=== PATIENT | male | born 1970 | race Caucasian/White ===

== ENCOUNTER 2017-12-25 06:17 | Inpatient (IN) | payer SELFPAY ==
[2017-12-25] VITALS (24 sets, daily range): BP systolic 83–105; BP diastolic 38–92
[~2017-12-25] VITALS: Ht 165.1 cm; Wt 85.3 kg
[2017-12-25] MEDS ORDERED: KETOROLAC 30MG/ML VIAL IV STA (07:38)
[2017-12-25] MEDS ORDERED: SODIUM CHLORIDE 0.9% 1,000 ML IV ONE ×2 (07:38→10:36)
[2017-12-25] MEDS ORDERED: ONDANSETRON HCL 4MG/2ML VIAL IV STA (07:38)
[2017-12-25 08:11] LABS: CHLORIDE 106 mEq/L (98-107)
[2017-12-25 08:12] LABS: INR 1.4; PROTHROMBIN TIME 14.7 sec (9.4-11.6)
[2017-12-25 08:13] LABS: MEAN CORPUSCULAR HEMOGLOBIN 29.6 pg (28.0-32.0); MEAN CORPUSCULAR VOLUME 91.4 fL (80.0-94.0); MEAN PLATELET VOLUME 9.6 fl (7.4-10.4); PLATELET 117 x1000/uL (130-400); RED BLOOD CELL COUNT 2.27 mill/uL (4.7-6.1); RED CELL DISTRIBUTION WIDTH 22.2 % (11.6-14.6)
[2017-12-25 08:21] LABS: HEMOGLOBIN. 6.7 g/dL (14.0-18.0)
[2017-12-25 08:22] LABS: HEMATOCRIT. 20.7 % (42.0-52.0)
[2017-12-25 09:40] LABS: PLATELET ESTIMATE SLIGHTLY DECREASED
[2017-12-25] MEDS ORDERED: CEFTRIAXONE 1 G PREMIX 50 ML IV ONE (10:15)
[2017-12-25 10:48] LABS: HEPATITIS B SURFACE ANTIGEN NEGATIVE
[2017-12-25 11:15] LABS: HEPATITIS B CORE AB IGM NEGATIVE
[2017-12-25 11:17] LABS: HEPATITIS A AB IGM NEGATIVE (NEGATIVE)
[2017-12-25] MEDS ORDERED: STERILE WATER FOR INJECTION 10ML VIAL ONE (14:13)
[2017-12-25] MEDS ORDERED: MIDAZOLAM HCL 5 MG/5 ML VIAL IV PRN (15:11)
[2017-12-25] MEDS ORDERED: SIMETHICONE 40 MG/0.6 ML 30ML ONE (15:12)
[2017-12-25] MEDS ORDERED: FENTANYL CITRATE/PF 50MCG/ML 2ML VIAL ONE (15:12)
[2017-12-25] MEDS ORDERED: MIDAZOLAM HCL 5 MG/5 ML VIAL ONE (15:12)
[2017-12-25 15:44] LABS: TOTAL IRON BINDING CAPACITY 206 ug/dL (250-450)
[2017-12-25] MEDS ORDERED: SODIUM CHLORIDE 0.9% 1,000 ML IV SCH (16:59)
[2017-12-25] MEDS ORDERED: DIPHENHYDRAMINE 50MG/ML VIAL IV PRN (17:00)
[2017-12-25] MEDS ORDERED: MAGNESIUM/ALUMINUM HYDROXIDE/SIMETHICONE 30ML UDC PO PRN (17:00)
[2017-12-25] MEDS ORDERED: CLONIDINE 0.1MG TABLET PO PRN (17:00)
[2017-12-25] MEDS: CEFTRIAXONE 1 G PREMIX 50 ML IV SCH (18:28)
[2017-12-25] MEDS: METRONIDAZOLE 500 MG PREMIX 100 ML IV SCH (18:29)
[2017-12-25] MEDS: PANTOPRAZOLE SODIUM 40 MG/VIAL IV SCH (18:37)
[2017-12-25] MEDS: SUCRALFATE 1 G/10 ML UDC PO SCH (18:37)
[2017-12-25] MEDS: ONDANSETRON HCL 4MG/2ML VIAL IV PRN (20:10)
[2017-12-25] MEDS ORDERED: PHYTONADIONE 10MG/ML AMP SUBCUT NR (20:43)
[2017-12-25] MEDS ORDERED: OCTREOTIDE ACETATE 50 MCG/ML 1ML IV ONE (20:45)
[2017-12-25] MEDS ORDERED: METRONIDAZOLE 500 MG PREMIX 100 ML IV SCH (21:00)
[2017-12-25] MEDS ORDERED: OCTREOTIDE ACETATE 50 MCG/ML 1ML IV SCH (21:30)
[2017-12-25] MEDS ORDERED: OCTREOTIDE 1,000 MCG in SODIUM CHLORIDE 0.9% 100 ML IV SCH (21:30)
[2017-12-25 21:46] LABS: HEMATOCRIT 20.5 % (42.0-52.0); HEMOGLOBIN 6.7 g/dL (14.0-18.0)
[2017-12-25 21:52] LABS: AMMONIA 61 uMol/L (<32)
[2017-12-26] VITALS (47 sets, daily range): BP systolic 85–136; BP diastolic 45–79
[2017-12-26] MEDS: METRONIDAZOLE 500 MG PREMIX 100 ML IV SCH ×3 (01:39→20:16)
[2017-12-26 05:52] LABS: HEMOGLOBIN 7.9 g/dL (14.0-18.0)
[2017-12-26 05:58] LABS: CHLORIDE 117 mEq/L (98-107)
[2017-12-26] MEDS: SUCRALFATE 1 G/10 ML UDC PO SCH ×4 (06:01→20:16)
[2017-12-26 06:17] LABS: PHOSPHORUS 2.1 mg/dL (2.5-4.9)
[2017-12-26 08:33] LABS: BASOPHILS % 0.4 % (0.0-2.0); EOSINOPHILS % 1.1 % (0.0-5.0); HEMATOCRIT. 24.1 % (42.0-52.0); HEMOGLOBIN. 8.3 g/dL (14.0-18.0); LYMPHOCYTES % 19.1 % (20.0-50.0); MEAN CORPUSCULAR HEMOGLOBIN 30.5 pg (28.0-32.0); MEAN CORPUSCULAR VOLUME 88.8 fL (80.0-94.0); MEAN PLATELET VOLUME 9.1 fl (7.4-10.4); MONOCYTES % 5.6 % (2.0-8.0); NEUTROPHILS % 73.8 % (40.0-76.0); PLATELET 95 x1000/uL (130-400); RED BLOOD CELL COUNT 2.71 mill/uL (4.7-6.1); RED CELL DISTRIBUTION WIDTH 17.9 % (11.6-14.6)
[2017-12-26] MEDS ORDERED: PANTOPRAZOLE SODIUM 40 MG/VIAL IV SCH (09:00)
[2017-12-26] MEDS: PANTOPRAZOLE SODIUM 40 MG/VIAL IV SCH ×2 (09:19→20:16)
[2017-12-26] MEDS ORDERED: POTASSIUM CHLORIDE INJ 30 MEQ in DEXTROSE 5% WATER 1,000 ML IV SCH (10:00)
[2017-12-26] MEDS ORDERED: KCL 10MEQ/50ML PREMIX 50 ML IV NR (10:30)
[2017-12-26] MEDS ORDERED: MAGNESIUM 1 G PREMIX 100 ML IV SCH (10:30)
[2017-12-26] MEDS ORDERED: POTASSIUM PHOS,M-BASIC-D-BASIC 20 MMOL in DEXT 5% WATER 243.3333 ML IV SCH (11:30)
[2017-12-26] MEDS: DEXT 5% WATER + KCL 20MEQ/L 1,000 ML IV SCH ×2 (13:04→22:46)
[2017-12-26 18:48] LABS: HEMATOCRIT 22.7 % (42.0-52.0); HEMOGLOBIN 7.8 g/dL (14.0-18.0); MEAN CORPUSCULAR HEMOGLOBIN 30.8 pg (28.0-32.0); MEAN CORPUSCULAR VOLUME 89.9 fL (80.0-94.0); PLATELET 104 x1000/uL (130-400); RED BLOOD CELL COUNT 2.53 mill/uL (4.7-6.1)
[2017-12-27] VITALS (14 sets, daily range): BP systolic 101–124; BP diastolic 55–74
[2017-12-27] MEDS: SUCRALFATE 1 G/10 ML UDC PO SCH ×4 (05:39→20:42)
[2017-12-27 05:55] LABS: HEMATOCRIT. 23.5 % (42.0-52.0); HEMOGLOBIN. 8.1 g/dL (14.0-18.0); MEAN CORPUSCULAR HEMOGLOBIN 31.2 pg (28.0-32.0); MEAN CORPUSCULAR VOLUME 90.2 fL (80.0-94.0); MEAN PLATELET VOLUME 8.9 fl (7.4-10.4); PLATELET 100 x1000/uL (130-400); RED BLOOD CELL COUNT 2.61 mill/uL (4.7-6.1); RED CELL DISTRIBUTION WIDTH 17.8 % (11.6-14.6)
[2017-12-27 06:04] LABS: CHLORIDE 110 mEq/L (98-107)
[2017-12-27 06:11] LABS: PHOSPHORUS 1.5 mg/dL (2.5-4.9)
[2017-12-27] MEDS: DEXT 5% WATER + KCL 20MEQ/L 1,000 ML IV SCH ×2 (07:30→09:08)
[2017-12-27] MEDS: PANTOPRAZOLE SODIUM 40 MG/VIAL IV SCH ×2 (08:10→20:42)
[2017-12-27] MEDS: CEFTRIAXONE 1 G PREMIX 50 ML IV SCH (08:10)
[2017-12-27] MEDS: METRONIDAZOLE 500 MG PREMIX 100 ML IV SCH ×2 (09:09→22:17)
[2017-12-27] MEDS ORDERED: POTASSIUM CHLORIDE 20MEQ/PACKET PO NR (09:30)
[2017-12-27 10:23] LABS: NUCLEATED RED BLOOD CELLS 11 /100 WBC
[2017-12-27 10:24] LABS: PLATELET ESTIMATE DECREASED
[2017-12-27] MEDS ORDERED: POTASSIUM PHOS M BASIC D BASIC IV NR (10:30)
[2017-12-27] MEDS ORDERED: WATER IV NR (10:30)
[2017-12-27] MEDS ORDERED: DEXT 5% IV NR (10:30)
[2017-12-27] MEDS: ONDANSETRON HCL 4MG/2ML VIAL IV PRN (11:28)
[2017-12-27] MEDS ORDERED: SIMETHICONE 40 MG/0.6 ML 30ML PO SCH (17:30)
[2017-12-27] MEDS: SIMETHICONE 80MG TABLET CHEW PO SCH ×3 (18:32→20:42)
[2017-12-28] VITALS: BP 107/67
[2017-12-28 04:00] VITALS: BP 108/72
[2017-12-28] MEDS: ACETAMINOPHEN 325MG TABLET PO PRN ×2 (06:28→19:51)
[2017-12-28 07:46] LABS: HEMOGLOBIN. 8.4 g/dL (14.0-18.0); MEAN CORPUSCULAR HEMOGLOBIN 31.2 pg (28.0-32.0); MEAN CORPUSCULAR VOLUME 92.5 fL (80.0-94.0); MEAN PLATELET VOLUME 9.1 fl (7.4-10.4); PLATELET 127 x1000/uL (130-400); RED CELL DISTRIBUTION WIDTH 18.3 % (11.6-14.6)
[2017-12-28 08:00] VITALS: BP 101/48
[2017-12-28 08:18] LABS: CHLORIDE 108 mEq/L (98-107)
[2017-12-28] MEDS: METRONIDAZOLE 500 MG PREMIX 100 ML IV SCH (08:25)
[2017-12-28] MEDS: PANTOPRAZOLE SODIUM 40 MG/VIAL IV SCH ×2 (08:25→19:50)
[2017-12-28] MEDS: CEFTRIAXONE 1 G PREMIX 50 ML IV SCH (08:25)
[2017-12-28] MEDS: SUCRALFATE 1 G/10 ML UDC PO SCH ×4 (08:30→19:50)
[2017-12-28] MEDS: SIMETHICONE 80MG TABLET CHEW PO SCH ×4 (08:31→19:51)
[2017-12-28 08:45] LABS: PHOSPHORUS 2.4 mg/dL (2.5-4.9)
[2017-12-28] MEDS ORDERED: POTASSIUM PHOS,M-BASIC-D-BASIC 15 MMOL in DEXT 5% WATER 245 ML IV NR (10:00)
[2017-12-28 11:16] LABS: NUCLEATED RED BLOOD CELLS 4 /100 WBC; PLATELET ESTIMATE SLIGHTLY DECREASED
[2017-12-28 12:00] VITALS: BP 99/46
[2017-12-28 16:00] VITALS: BP 105/52
[2017-12-28 20:00] VITALS: BP 106/49
[2017-12-29] VITALS: BP 101/60
[2017-12-29] MEDS: ACETAMINOPHEN 325MG TABLET PO PRN ×2 (03:30→08:09)
[2017-12-29 04:00] VITALS: BP 104/69
[2017-12-29] MEDS: SUCRALFATE 1 G/10 ML UDC PO SCH ×3 (08:09→17:30)
[2017-12-29] MEDS: SIMETHICONE 80MG TABLET CHEW PO SCH ×2 (10:15→14:20)
[2017-12-29] MEDS: PANTOPRAZOLE SODIUM 40 MG/VIAL IV SCH (10:16)
[2017-12-29 12:00] VITALS: BP 106/49
[2017-12-29 16:00] VITALS: BP 108/59
[2017-12-29 17:04] VITALS: BP 108/57
== END 2017-12-29 18:50 | disposition home or self-care (01) | DRG 720 ==
LOC: ER 07:46 → ENRESERV 10:00 → CANRESERV 10:00 → 5EST 10:17 → EDBEDREQSVC 10:18 → EDBEDREQ 10:18 → EDBEDREQTM 10:18 → ENRESERV 10:31 → MICUSO 21:10 → 7WST 12-27 18:07
PROVIDERS: ADMIT Internal Medicine; ATTEND Internal Medicine
PROC: 0DJ08ZZ Inspection of Upper Intestinal Tract, Via Natural or Artificial Opening Endoscopic (ICD-10-PCS; 2017-12-25)
PROC: 30233N1 Transfusion of Nonautologous Red Blood Cells into Peripheral Vein, Percutaneous Approach (ICD-10-PCS; principal; 2017-12-25 16:30)
PROC: 30233N1 Transfusion of Nonautologous Red Blood Cells into Peripheral Vein, Percutaneous Approach (ICD-10-PCS; 2017-12-26)
DX: A41.9 Sepsis, unspecified organism (principal); E43 Unspecified severe protein-calorie malnutrition; D68.9 Coagulation defect, unspecified; I85.00 Esophageal varices without bleeding; K76.6 Portal hypertension; K29.61 Other gastritis with bleeding; K29.21 Alcoholic gastritis with bleeding; D64.9 Anemia, unspecified; K70.31 Alcoholic cirrhosis of liver with ascites; D69.6 Thrombocytopenia, unspecified; F10.20 Alcohol dependence, uncomplicated; K76.0 Fatty (change of) liver, not elsewhere classified; Z68.31 Body mass index [BMI] 31.0-31.9, adult
CPT/HCPCS: 36415; 36430; 71045; 74018; 74176; 74181; 76705; 80048; 80053; 80076; 82105; 82140; 82270; 82607; 82728; 82746; 83540; 83550; 83605; 83690; 83735; 84100; 85014; 85018; 85025; 85027; 85044; 85610; 86705; 86709; 86803; 86850; 86900; 86920; 86927; 87040; 87340; 93005; 96374; 96375; 97162; 97165; 99285; A4216; A6261; C9113; J0696; J1885; J2250; J2354; J2405; J3010; J3430; J3475; J3480; J3490; J7030; J7040; J7050; J7060; P9016; P9017

== ENCOUNTER 2018-07-18 09:34 | Emergency (ER) | payer MEDICAID ==
[~2018-07-18] VITALS: Ht 154.9 cm; Wt 78.6 kg
[2018-07-18 11:53] VITALS: BP 130/72
== END 2018-07-18 11:54 | disposition home or self-care (01) ==
LOC: ER 10:33
DX: R20.2 Paresthesia of skin (principal); G62.9 Polyneuropathy, unspecified
CPT/HCPCS: 99283